=== PATIENT | male | born 1985 | race Caucasian/White ===

== ENCOUNTER 2019-07-14 22:43 | Emergency (ER) | payer OTHER ==
[~2019-07-14] VITALS: Ht 182.9 cm; Wt 70.9 kg
[2019-07-15] MEDS ORDERED: KETOROLAC10 MG PO (00:20)
[2019-07-15 00:38] VITALS: BP 125/86
== END 2019-07-15 00:38 | disposition home or self-care (01) ==
LOC: ED 22:43
DX: J30.2 Other seasonal allergic rhinitis (principal); R51 Headache
CPT/HCPCS: J1885

== ENCOUNTER → 2020-04-17 | Outpatient (CLI) | payer OTHER ==
[~2020-04-17] MED LIST: KETOROLAC10 MG PO
[2020-04-17 15:45] LABS: EOS # 0.1 (0.04-0.40); EOS % 2.5 % (0.0-4.0); HEMATOCRIT 42.8 % (42.0-52.0); HEMOGLOBIN 14.5 g/dL (13.5-18.0); LYMPH# 1.7 (1.50-4.00); MEAN CELL VOLUME 85 fl (78-100); MEAN CORPUSCULAR HEMOGLOBIN 29 pg (27-31); MEAN CORPUSCULAR HGB CONC 34 g/dL (33-37); MEAN PLATELET VOLUME 9.5 fl (7.4-10.4); MONO # 0.6 (0.20-0.80); NEU # 2.5 (1.40-6.50); PLATELET COUNT 297 K/mm3 (130-400); RED BLOOD COUNT 5.01 M/mm3 (4.20-5.60); WHITE BLOOD COUNT 4.9 K/mm3 (4.8-10.8)
[2020-04-17 15:56] LABS: ALBUMIN 4.6 g/dL (3.5-5.0); POTASSIUM 3.7 mmol/L (3.5-5.1)
[2020-04-17 15:58] LABS: TOTAL PROTEIN 7.2 g/dL (6.4-8.3)
[2020-04-17 16:00] LABS: TOTAL BILIRUBIN 0.9 mg/dL (0.2-1.2)
== END ==
LOC: LAB 15:31
PROVIDERS: Nurse Practitioner
DX: L03.90 Cellulitis, unspecified (principal)

== ENCOUNTER → 2024-10-26 | Outpatient (CLI) | payer OTHER | LOC: RAD 17:23 | DX: M54.50 Low back pain, unspecified (principal) ==

== ENCOUNTER → 2024-11-05 | Outpatient (CLI) | payer OTHER | LOC: RAD 08:41 | DX: M51.370 Other intervertebral disc degeneration, lumbosacral region with discogenic back pain only (principal); M48.07 Spinal stenosis, lumbosacral region ==